=== PATIENT | female | born 1985 | race Caucasian/White ===

== ENCOUNTER → 2016-03-26 | Outpatient (CLI) | payer BC, OTHER ==
[~2016-03-26] MED LIST: INSPMPHMLG; PRENTAB26 PO
[2016-03-26 10:06] LABS: ESTIMATED AVERAGE GLUCOSE 189 mg/dl; HA1C FLAG Normal (Normal)
== END | disposition home or self-care (01) ==
LOC: C.LAB1850 06:59
PROVIDERS: ATTEND Internal Medicine Endocrinology, Diabetes & Metabolism
DX: E10.65 Type 1 diabetes mellitus with hyperglycemia (principal)

== ENCOUNTER → 2016-04-08 | Outpatient (CLI) | payer BC, OTHER ==
[2016-04-11 13:09] LABS: CHLAMYDIA TRACH RNA*** NOT DETECTED (NOT DETECTED); GC (NEIS GONORRHOEAE)RNA** NOT DETECTED (NOT DETECTED)
== END | disposition home or self-care (01) ==
LOC: C.LABSPEC 16:49
PROVIDERS: ATTEND Obstetrics & Gynecology
DX: Z34.01 Encounter for supervision of normal first pregnancy, first trimester (principal)

== ENCOUNTER → 2016-04-08 | Outpatient (CLI) | payer BC, OTHER | END | disposition home or self-care (01) | LOC: C.PAPS 16:49 | PROVIDERS: ATTEND Obstetrics & Gynecology | DX: Z34.01 Encounter for supervision of normal first pregnancy, first trimester (principal) ==

== ENCOUNTER → 2016-04-26 | Outpatient (CLI) | payer BC, OTHER ==
[2016-04-26 13:27] LABS: ESTIMATED AVERAGE GLUCOSE 154 mg/dl; HA1C FLAG Normal (Normal)
== END | disposition home or self-care (01) ==
LOC: C.LAB1850 11:30
PROVIDERS: ATTEND Internal Medicine Endocrinology, Diabetes & Metabolism
DX: E10.65 Type 1 diabetes mellitus with hyperglycemia (principal)

== ENCOUNTER → 2016-06-21 | Outpatient (CLI) | payer BC, OTHER ==
[2016-06-21 12:12] LABS: BASO % 0.5 %; BASO ABS # 0.07 K/uL (0-0.2); COMPLETE YES; EOS % 2.9 %; HEMATOCRIT 37.3 % (37-47); IG% 0.4 %; LYMPH ABS # 1.79 K/uL (1.2-3.4); MEAN CELL VOLUME 86.5 fL (80-100); MEAN CORPUSCULAR HEMOGLOBIN 29.5 pg (25-34); MEAN PLATELET VOLUME 10.4 fL (7.4-10.4); MONO % 5.8 %; NEUT % 77.4 %; PLATELET COUNT 284 K/uL (130-400); RED BLOOD COUNT 4.31 M/uL (4.2-5.4); WHITE BLOOD COUNT 13.77 K/uL (4.8-10.8)
[2016-06-21 12:19] LABS: ESTIMATED AVERAGE GLUCOSE 128 mg/dl; HA1C FLAG Normal (Normal)
== END | disposition home or self-care (01) ==
LOC: C.LAB1850 10:29
PROVIDERS: ATTEND Obstetrics & Gynecology
DX: Z34.02 Encounter for supervision of normal first pregnancy, second trimester (principal); O24.012 Pre-existing type 1 diabetes mellitus, in pregnancy, second trimester

== ENCOUNTER 2016-10-18 21:30 | Outpatient (CLI) | payer BC, OTHER ==
--- NOTE | 2016-10-21 13:25 | EDITING REQUIRED CODING QUERY ---
DIAGNOSIS NEEDED To promote full compliance with coding requirements relating to patient care, physician participation is requested in all cases of chart calculator uncertainty. Please assist us with the question(s) below: Coding Question: The patient received care in labor and delivery on 10/18/16 as noted within the record. Please document the diagnosis that is being addressed by the medication/treatment. Provider Response: DIAGNOSIS:insulin dependent diabetic Thank you for your assistance, Zari Kiran - Captain/Airline Pilot
== END 2016-10-18 21:59 | disposition home or self-care (01) ==
LOC: C.LD 21:30 → C.OPB 21:30
PROVIDERS: ATTEND Obstetrics & Gynecology
DX: O24.113 Pre-existing type 2 diabetes mellitus, in pregnancy, third trimester (principal); Z3A.34 34 weeks gestation of pregnancy

== ENCOUNTER 2016-10-26 19:10 | Outpatient (CLI) | payer BC, OTHER ==
[~2016-10-26] VITALS: Ht 165.1 cm; Wt 60.0 kg
[2016-10-26] MEDS ORDERED: PRENTAB26 PO (20:09)
[2016-10-26 20:10] VITALS: Ht 165.1 cm; Wt 60.0 kg
--- NOTE | 2016-11-01 10:45 | EDITING REQUIRED CODING QUERY ---
DIAGNOSIS NEEDED To promote full compliance with coding requirements relating to patient care, physician participation is requested in all cases of scroll machine operator uncertainty. Please assist us with the question(s) below: Coding Question: The patient received care in labor and delivery on 10/26/16 as noted within the record. Please document the diagnosis that is being addressed by the medication/treatment. Provider Response: DIAGNOSIS: insulin dependent diabetic Thank you for your assistance, Zari Kiran - Driver'S Education Instructor
== END 2016-10-26 19:50 | disposition home or self-care (01) ==
LOC: C.OPB 19:10 → C.LD 19:10 → C.OPB 19:50
PROVIDERS: ATTEND Obstetrics & Gynecology
DX: O24.113 Pre-existing type 2 diabetes mellitus, in pregnancy, third trimester (principal); Z79.4 Long term (current) use of insulin; Z3A.35 35 weeks gestation of pregnancy

== ENCOUNTER 2016-11-01 21:40 | Outpatient (CLI) | payer BC, OTHER ==
[~2016-11-01 21:40] MED LIST changes: -INSPMPHMLG
== END 2016-11-01 22:10 | disposition home or self-care (01) ==
LOC: C.OPB 21:40 → C.LD 21:40 → C.OPB 22:10
PROVIDERS: ATTEND Obstetrics & Gynecology
DX: O24.013 Pre-existing type 1 diabetes mellitus, in pregnancy, third trimester (principal); Z3A.36 36 weeks gestation of pregnancy

== ENCOUNTER → 2016-11-04 | Outpatient (CLI) | payer BC, OTHER ==
[~2016-11-04] MED LIST changes: +INSPMPHMLG
== END | disposition home or self-care (01) ==
LOC: C.LABSPEC 13:50
PROVIDERS: ATTEND Obstetrics & Gynecology
DX: Z34.03 Encounter for supervision of normal first pregnancy, third trimester (principal)

== ENCOUNTER 2016-11-08 21:56 | Outpatient (CLI) | payer BC, OTHER ==
[~2016-11-08 21:56] MED LIST changes: -INSPMPHMLG
--- NOTE | 2016-11-20 11:37 | EDITING REQUIRED CODING QUERY ---
DIAGNOSIS NEEDED To promote full compliance with coding requirements relating to patient care, physician participation is requested in all cases of mechanical insulator uncertainty. Please assist us with the question(s) below: Coding Question: The patient received care in labor and delivery on 11/09/16 as noted within the record. Please document the diagnosis that is being addressed by the medication/treatment. Provider Response: DIAGNOSIS: insulin dependent diabetic WEEKS GESTATION: Thank you for your assistance, Zari Kiran - Audio Visual Arts Director
== END 2016-11-08 22:24 | disposition home or self-care (01) ==
LOC: C.OPB 21:56 → C.LD 21:56 → C.OPB 22:24
PROVIDERS: ATTEND Obstetrics & Gynecology
DX: O24.119 Pre-existing type 2 diabetes mellitus, in pregnancy, unspecified trimester (principal); Z3A.00 Weeks of gestation of pregnancy not specified

== ENCOUNTER 2016-11-16 10:21 | Outpatient (CLI) | payer BC, OTHER | END 2016-11-16 11:20 | disposition home or self-care (01) | LOC: C.LD 10:21 → C.OPB 10:21 | PROVIDERS: ATTEND Obstetrics & Gynecology | DX: O24.019 Pre-existing type 1 diabetes mellitus, in pregnancy, unspecified trimester (principal); E10.9 Type 1 diabetes mellitus without complications; Z3A.00 Weeks of gestation of pregnancy not specified ==

== ENCOUNTER 2016-11-19 15:39 | Inpatient (IN) | payer BC, OTHER ==
[~2016-11-19] VITALS: Ht 165.1 cm; Wt 76.8 kg
[2016-11-19] MEDS ORDERED: LACTATED RINGER'S 1000ML 1,000 ML IV PRN (21:13)
[2016-11-19 21:51] LABS: HEMATOCRIT 38.1 % (37-47); MEAN CELL VOLUME 91.4 fL (80-100); MEAN CORPUSCULAR HEMOGLOBIN 30.7 pg (25-34); MEAN CORPUSCULAR HGB CONC 33.6 g/dl (32-36); MEAN PLATELET VOLUME 11.1 fL (7.4-10.4); PLATELET COUNT 215 K/uL (130-400); RED BLOOD COUNT 4.17 M/uL (4.2-5.4); WHITE BLOOD COUNT 13.17 K/uL (4.8-10.8)
[2016-11-19] MEDS ORDERED: DINOPROSTONE 10 MG INSERT PV ONE (22:15)
[2016-11-19] MEDS ORDERED: PENICILLIN G POTASSIUM IV 3 MU in DEXTROSE 5% 100ML 100 ML IV PRN (22:30)
[2016-11-19] MEDS ORDERED: PENICILLIN G POTASSIUM IV 6 MU in DEXTROSE 5% 250ML 250 ML IV ONE (22:30)
[2016-11-19 22:37] VITALS: Ht 165.1 cm; Wt 76.8 kg
[2016-11-20] MEDS ORDERED: INSPMPHMLG (00:01)
[2016-11-20] MEDS ORDERED: NURSING VERBAL MED ORDER ONE (00:15)
[2016-11-20] MEDS ORDERED: INSULIN HUMAN LISPRO (humaLOG) 100 UNITS/ML VIAL SC PRN (00:45)
[2016-11-20] MEDS ORDERED: GLUCOSE 40% GEL 15 GM TUBE PO PRN (00:45)
[2016-11-20] MEDS ORDERED: GLUCOSE 10 TABS/TUBE PO PRN (00:45)
[2016-11-20] MEDS ORDERED: DEXTROSE 50% 50 ML SYR IV PRN (00:45)
[2016-11-20] MEDS ORDERED: GLUCAGON FOR INJ 1 MG VIAL SQ PRN (00:45)
[2016-11-20] MEDS: LACTATED RINGER'S 1000ML 1,000 ML IV SCH ×2 (00:53→05:30)
[2016-11-20] MEDS: BUTORPHANOL TARTRATE 1 MG/ML VIAL IV PRN ×2 (03:22→05:37)
[2016-11-20] MEDS ORDERED: BUPIVACAINE 0.25% 30 ML VIAL ONE (05:46)
[2016-11-20] MEDS ORDERED: FENTANYL CITRATE INJ 50 MCG/1 ML 2 ML VIAL ONE (05:46)
[2016-11-20] MEDS ORDERED: FENTANYL 2MCG/ML ROPIV 1.25MG/ML 100ML BAG EPI ONE (05:46)
[2016-11-20] MEDS ORDERED: EpHEDrine SULFATE INJ 50 MG/ML AMP ONE (05:46)
[2016-11-20] MEDS ORDERED: OXYTOCIN 30 UNITS/500ML NSS IV ONE (06:53)
[2016-11-20] MEDS ORDERED: OXYCODONE/ACETAMINOPHEN 5-325 TAB PO PRN (08:30)
[2016-11-20] MEDS ORDERED: HYDROCORTISONE ACETATE 25 MG SUPP PR PRN (08:30)
[2016-11-20] MEDS ORDERED: LANOLIN OINT EXT PRN ×2 (08:30)
[2016-11-20] MEDS ORDERED: BENZOCAINE 20% AER SPR 82.5 GM CAN EXT PRN (08:30)
[2016-11-20] MEDS ORDERED: SUPERCREAM 0.870 % 15GM JAR EXT PRN (08:30)
[2016-11-20] MEDS ORDERED: DIPHTHERIA/TETANUS/PERTUSSIS 0.5 ML SYR/VIAL IM. ONE (08:30)
[2016-11-20] MEDS ORDERED: ACETAMINOPHEN 325 MG TAB PO PRN (08:30)
[2016-11-20] MEDS ORDERED: OXYTOCIN 30 UNITS/500ML NSS IV PRN (08:30)
--- NOTE | 2016-11-20 10:09 | DELIVERY SUMMARY ---
DATE OF OPERATION: 11/20/2016 DELIVERY NOTE Helena is a 31-year-old 1, para 1, type 1 diabetic. She has been on insulin pump. She receives her diabetic care from the [facility]. Her glucose control during her has been excellent. She rarely spilled sugar. Blood type is B positive, rubella immune. Vaginal beta strep positive. We have had several ultrasounds done for size including one done approximately 1 week prior to delivery, did not reveal any macrosomia and the abdominal head circumference lined up without any big discrepancy. The patient did request a vaginal delivery so she was brought in for induction at 39+ weeks gestation due to her insulin-dependent diabetic condition. On admission vertex presentation. Cervix was about 2 cm about 60-70% effaced. She was having contractions, although she did not feel them about every 4 minutes. With this contraction pattern we elected to go for Cervidil tape, placed Cervidil tape and they said within an hour or so after the Cervidil tape, she began to become crampy. She was checked and she was about 3-4 cm and then checked about an hour later she was fully dilated. We were unable to give her an epidural due to the fact that she dilated so rapidly and she started pushing and pushed out a live female infant via direct occiput anterior position over a midline episiotomy. was suctioned through the mouth and the nose after delivery of the head. Shoulders were delivered without difficulty at all. Cord was clamped and cut. Cord blood was taken. With IV Pitocin running, the placenta was removed intact. My own estimation 1 and 5 minute Apgars were 5 and 8 respectively. She had bilateral sulcus laceration and a tear through the perineum into a portion of the anterior rectal sphincter capsule, but not into the muscle. Both lateral sulcus lacerations were repaired individually with a running 2-0 Vicryl. Then I did repair of the rectovaginal septum and bolstered the rectal sphincter capsule with a running heavy Vicryl. I then did a deep suture to approximate the bulbocavernosus muscles on each side. I did 3 interrupted sutures to approximate the perineal body and then I did a running subcuticular suture to approximate the perineal skin edges. Following this, vag exam including rectovaginal examination revealed no hematoma formation, no sponges in the vagina, no stitches through the rectal mucosa. The patient tolerated the procedure well. Estimated blood loss about 500 mL. I attest to the content of the Intraoperative Record and any orders documented therein. Any exception s are noted below.
[2016-11-20 10:15] VITALS: BP 117/71; PULSE 72; TEMP 36.9
[2016-11-20] MEDS: IBUPROFEN 600 MG TAB PO PRN ×3 (10:23→18:48)
[2016-11-20 15:45] VITALS: BP 112/59; PULSE 75; TEMP 36.9
[2016-11-20 16:15] VITALS: BP 116/68; PULSE 68; TEMP 36.8
[2016-11-20 19:50] VITALS: BP 117/69; PULSE 93; TEMP 36.7
[2016-11-20] MEDS: DOCUSATE SODIUM 100 MG CAP PO SCH (19:59)
[2016-11-21] MEDS: ACETAMINOPHEN/CODEINE 300/30MG TAB PO PRN ×5 (00:03→22:56)
[2016-11-21 00:05] VITALS: BP 116/71; PULSE 78; TEMP 36.7
[2016-11-21 04:40] VITALS: BP 105/62; PULSE 90; TEMP 36.8
[2016-11-21 06:54] LABS: HEMATOCRIT 34.1 % (37-47)
[2016-11-21 07:40] VITALS: BP 115/71; PULSE 78; TEMP 36.9
--- NOTE | 2016-11-21 08:42 | Progress Note ---
Subjective Nov 21, 2016. Subjective conversation w/ patient Ambulation: ambulating normally Voiding: no voiding problems Passing Gas: Yes Diet Tolerance: Regular Diet Lochia: Small Feeding Type: Breast Feeding Review of Systems Constitutional: + fever Objective Vital Signs Date Time Temp Pulse Resp B/P (MAP) Pulse Ox O2 Delivery O2 Flow Rate FiO2 11/21/16 04:40 36.8 90 17 105/62 (76) Room Air 11/21/16 00:05 36.7 78 20 116/71 (86) Room Air 11/21/16 00:05 Room Air 11/20/16 19:50 36.7 93 20 117/69 (85) Room Air 11/20/16 16:15 36.8 68 16 116/68 (84) Room Air 11/20/16 16:15 Room Air 11/20/16 15:45 36.9 75 16 112/59 (76) Room Air 11/20/16 14:30 Room Air 11/20/16 10:15 36.9 72 20 117/71 (86) Room Air 11/20/16 10:15 Room Air Physical Exam General Appearance: WELL-APPEARING Abdomen: non tender Fundus: Firm, Non-Tender Extremities: no pedal edema, no calf tenderness Laboratory Results Last 24 Hours Test 11/21/16 06:25 Hemoglobin 11.6 g/dL Hematocrit 34.1 % Assessment and Plan Post- Day#: 1
[2016-11-21] MEDS: FERROUS SULFATE 325 MG TAB PO SCH (08:50)
[2016-11-21] MEDS: PRENATAL VITAMIN TAB PO SCH (08:50)
[2016-11-21] MEDS: IBUPROFEN 600 MG TAB PO PRN ×2 (08:50→19:50)
[2016-11-21] MEDS: DOCUSATE SODIUM 100 MG CAP PO SCH ×2 (08:50→19:50)
[2016-11-21 15:50] VITALS: BP 102/56; PULSE 74; TEMP 36.7
[2016-11-21] MEDS ORDERED: BISACODYL 5 MG TABEC PO SCH (20:00)
[2016-11-21 23:00] VITALS: BP 104/64; PULSE 78; TEMP 36.7
[2016-11-22] MEDS: IBUPROFEN 600 MG TAB PO PRN ×2 (03:14→08:11)
[2016-11-22] MEDS: ACETAMINOPHEN/CODEINE 300/30MG TAB PO PRN (06:34)
[2016-11-22] MEDS ORDERED: BISACODYL 10 MG SUPP PR PRN (07:00)
[2016-11-22 08:00] VITALS: BP 99/60; PULSE 78; TEMP 36.6
[2016-11-22] MEDS: PRENATAL VITAMIN TAB PO SCH (08:11)
[2016-11-22] MEDS: FERROUS SULFATE 325 MG TAB PO SCH (08:11)
[2016-11-22] MEDS: DOCUSATE SODIUM 100 MG CAP PO SCH (08:11)
--- NOTE | 2016-11-22 09:07 | Progress Note ---
Subjective Nov 22, 2016. Subjective conversation w/ patient Ambulation: ambulating normally Voiding: no voiding problems Passing Gas: Yes Diet Tolerance: Regular Diet Lochia: Small Feeding Type: Breast Feeding Review of Systems Constitutional: + fever Objective Vital Signs Date Time Temp Pulse Resp B/P (MAP) Pulse Ox O2 Delivery O2 Flow Rate FiO2 11/22/16 08:00 36.6 78 16 99/60 (73) Room Air 11/21/16 23:00 Room Air 11/21/16 23:00 36.7 78 20 104/64 (77) Room Air 11/21/16 15:50 Room Air 11/21/16 15:50 36.7 74 16 102/56 (71) Room Air Physical Exam General Appearance: WELL-APPEARING Abdomen: non tender Fundus: Firm, Non-Tender Extremities: no pedal edema, no calf tenderness Laboratory Results Last 24 Hours Test 11/21/16 12:05 11/21/16 18:46 11/21/16 23:07 11/22/16 08:06 Bedside Glucose 118 mg/dl 107 mg/dl 88 mg/dl 76 mg/dl Assessment and Plan Post- Day#: 2
--- NOTE | 2016-11-22 09:10 | Discharge Instructions ---
Discharge Instructions Date of Service Nov 22, 2016. Admission Reason for Admission: Induction Discharge Discharge Diagnosis / Problem: insulin dependent diabetes Discharge Goals Goal(s): Routine recovery after delivery Activity Recommendations Activity Limitations: as noted below ACTIVITY RECOMMENDATIONS: * Gradual return to full activity over the next 2-3 weeks. * No lifting - nothing heavier than baby over the next 2-3 weeks. * Do not engage in vigorous exercise, sexual activity or sports until cleared by your physician. * Do not drive or operate any motorized equipment until cleared by your physician. * You may shower/bathe daily. DIET: Resume Previous Diet If Breast-feeding: * Increase caloric intake by 500 calories, eat 3 well balanced meals, 2 high protein snacks a day and drink 6-8 8oz. glasses of fluid per day. BREAST CARE: If you are not breast feeding: * Wear a supportive bra 24 hours a day for one to two weeks. * Avoid stimulating your breasts and nipples as much as possible during the first few weeks after delivery. * When taking a shower, have the warm water hit your back, not breasts. * When your breasts feel full, apply ice packs. Usually three to four times a day helps ease the discomfort. * Take a mild pain medication (Tylenol / Motrin) when you are uncomfortable. If breast feeding: * Use breast milk to lubricate nipples. Lansinoh cream may be used for sore nipples. You do not need to remove cream prior to breast feeding. If using a different brand of cream, check the label for directions regarding removal of cream prior to nursing. * Wear a supportive bra. * If having problems with breasts or breast feeding, call a collection systems consultant or your health care provider. OVER THE COUNTER MEDICATION: * For discomfort or pain, you may use Acetaminophen (Tylenol), Ibuprofen (Advil ), or Naproxen (Aleve) following the package directions. * For constipation you may use Colace following the package directions. SPECIAL CARE INSTRUCTIONS: * Vaginal rest (no tampons, douching, intercourse) until after doctor 's visit. * control as discussed with doctor. * Verbalizes understanding of car seat law as reviewed with patient nursing. * Car Seat hand-out given and reviewed with patient by nursing. * Shaken baby information reviewed with patient by nursing. Call you doctor if: * Temperature greater than or equal to 100.4 degrees F or 38.0 degrees C. Take your temperature twice daily for a week. * Bleeding becomes heavier than the heaviest part of your period - saturating a sanitary pad within an hour. * Passing large clots. * Bleeding has a foul smelling odor. * Signs and symptoms of phlebitis: leg pain, warm, red or swollen area on leg. * "Baby Blues" lasting longer than two weeks. ++ If you have had a and incision has increased pain, redness, swelling, presence of any drainage, or if the incision starts to open up. If you have any questions or concerns, call your health care practitioner at [phone]. FOLLOW-UP VISIT: Please call the office at to schedule a 6 week examination. . Instructions / Follow-Up Instructions / Follow-Up ACTIVITY RECOMMENDATIONS: * Gradual return to full activity over the next 2-3 weeks. * No lifting - nothing heavier than baby over the next 2-3 weeks. * Do not engage in vigorous exercise, sexual activity or sports until cleared by your physician. * Do not drive or operate any motorized equipment until cleared by your physician. * You may shower/bathe daily. DIET: Resume Previous Diet If Breast-feeding: * Increase caloric intake by 500 calories, eat 3 well balanced meals, 2 high protein snacks a day and drink 6-8 8oz. glasses of fluid per day. BREAST CARE: If you are not breast feeding: * Wear a supportive bra 24 hours a day for one to two weeks. * Avoid stimulating your breasts and nipples as much as possible during the first few weeks after delivery. * When taking a shower, have the warm water hit your back, not breasts. * When your breasts feel full, apply ice packs. Usually three to four times a day helps ease the discomfort. * Take a mild pain medication (Tylenol / Motrin) when you are uncomfortable. If breast feeding: * Use breast milk to lubricate nipples. Lansinoh cream may be used for sore nipples. You do not need to remove cream prior to breast feeding. If using a different brand of cream, check the label for directions regarding removal of cream prior to nursing. * Wear a supportive bra. * If having problems with breasts or breast feeding, call a collection systems consultant or your health care provider. OVER THE COUNTER MEDICATION: * For discomfort or pain, you may use Acetaminophen (Tylenol), Ibuprofen (Advil ), or Naproxen (Aleve) following the package directions. * For constipation you may use Colace following the package directions. SPECIAL CARE INSTRUCTIONS: * Vaginal rest (no tampons, douching, intercourse) until after doctor 's visit. * control as discussed with doctor. * Verbalizes understanding of car seat law as reviewed with patient nursing. * Car Seat hand-out given and reviewed with patient by nursing. * Shaken baby information reviewed with patient by nursing. Call you doctor if: * Temperature greater than or equal to 100.4 degrees F or 38.0 degrees C. Take your temperature twice daily for a week. * Bleeding becomes heavier than the heaviest part of your period - saturating a sanitary pad within an hour. * Passing large clots. * Bleeding has a foul smelling odor. * Signs and symptoms of phlebitis: leg pain, warm, red or swollen area on leg. * "Baby Blues" lasting longer than two weeks. ++ If you have had a and incision has increased pain, redness, swelling, presence of any drainage, or if the incision starts to open up. If you have any questions or concerns, call your health care practitioner at [phone]. FOLLOW-UP VISIT: Please call the office at to schedule a 6 week examination. Current Hospital Diet Patient's current hospital diet: Regular OB Diet Discharge Diet Recommended Diet: Regular Diet Pending Studies Studies pending at discharge: no Medical Emergencies . Who to Call and When: Medical Emergencies: If at any time you feel your situation is an emergency, please call 911 immediately. . Non-Emergent Contact Non-Emergency issues call your: Work Checker Call Non-Emergent contact if: temperature is above 100.5 . . "Provider Documentation" section prepared by Allen Yost. . VTE Core Measure Inpt VTE Proph given/why not?: Treatment not indicated
[2016-11-22 14:10] VITALS: BP_DIAS 60; PULSE 78; TEMP 36.6
== END 2016-11-22 14:10 | disposition home or self-care (01) | DRG 774 ==
LOC: C.LD 20:55 → C.OBG 11-20 22:14
PROVIDERS: ADMIT Obstetrics & Gynecology; ATTEND Obstetrics & Gynecology
PROC: 3E033VJ Introduction of Other Hormone into Peripheral Vein, Percutaneous Approach (ICD-10-PCS; principal; 2016-11-20)
PROC: 0KQM0ZZ Repair Perineum Muscle, Open Approach (ICD-10-PCS; principal; 2016-11-20)
PROC: 10E0XZZ Delivery of Products of Conception, External Approach (ICD-10-PCS; principal; 2016-11-20)
PROC: 0W8NXZZ Division of Female Perineum, External Approach (ICD-10-PCS; principal; 2016-11-20)
DX: O24.02 Pre-existing type 1 diabetes mellitus, in childbirth (principal); Z22.330 Carrier of Group B streptococcus; O70.1 Second degree perineal laceration during delivery; Z96.41 Presence of insulin pump (external) (internal); Z37.0 Single live birth; Z3A.39 39 weeks gestation of pregnancy

== ENCOUNTER → 2016-12-30 | Outpatient (CLI) | payer BC ==
[~2016-12-30] MED LIST changes: +INSPMPHMLG
== END | disposition home or self-care (01) ==
LOC: C.PAPS 14:47
PROVIDERS: ATTEND Obstetrics & Gynecology
DX: Z39.2 Encounter for routine postpartum follow-up (principal)

== ENCOUNTER 2019-06-22 09:47 | Inpatient (IN) ==
[2019-06-22] MEDS ORDERED: OXYTOCIN 30 UNITS/500 ML BAG IV PRN (20:15)
[2019-06-22] MEDS ORDERED: LACTATED RINGER'S 1,000 ML IV PRN (20:15)
[2019-06-22] MEDS ORDERED: PENICILLIN G POTASSIUM 6 MU in DEXTROSE 5% 250 ML IV STA (20:20)
[2019-06-22 20:39] LABS: Hematocrit (blood only) 37.9 % (37-47); Hemoglobin 12.9 g/dL (12.0-16.0); Mean Corpuscular Hemoglobin 30.7 pg (25-34); Mean Corpuscular Volume 90.2 fL (80-100); Mean Platelet Volume 11.4 fL (7.4-10.4); Platelet Count 205 K/uL (130-400); RDW Coefficient of Variation 13.8 % (11.5-14.5); RDW Standard Deviation 45.5 fL (36.4-46.3); White Blood Count 11.72 K/uL (4.8-10.8)
[2019-06-22] MEDS ORDERED: DINOPROSTONE 10 MG INSERT PV ONE (20:45)
[2019-06-22] MEDS ORDERED: BUTORPHANOL TARTRATE 1 MG/ML VIAL IV PRN (20:51)
[2019-06-23] MEDS: PENICILLIN G POTASSIUM 3 MU in DEXTROSE 5% 100 ML IV PRN ×2 (00:43→04:59)
[2019-06-23] MEDS ORDERED: BENZOCAINE 20% AER SPR 82.5 GM CAN EXT PRN (09:40)
[2019-06-23] MEDS ORDERED: OXYTOCIN 30 UNITS/500 ML BAG IV PRN (09:40)
[2019-06-23] MEDS ORDERED: SUPERCREAM 0.870% 15 GM JAR EXT PRN (09:40)
[2019-06-23] MEDS ORDERED: bisacodyL 10 MG SUPP PR PRN (09:40)
[2019-06-23] MEDS ORDERED: OXYCODONE/ACETAMINOPHEN 5mg/325mg TAB PO PRN (09:40)
[2019-06-23] MEDS ORDERED: ACETAMINOPHEN W/CODEINE #3 1 TAB PO PRN (09:40)
[2019-06-23] MEDS ORDERED: DIPHTHERIA/TETANUS/PERTUSSIS 0.5 ML SYR/VIAL IM ONE (09:40)
[2019-06-23] MEDS ORDERED: MEASLES, MUMPS & RUBELLA VIRUS VIAL SQ ONE (09:40)
[2019-06-23] MEDS ORDERED: ACETAMINOPHEN 325 MG TAB PO PRN (09:40)
[2019-06-23] MEDS ORDERED: HYDROCORTISONE ACETATE 25 MG SUPP PR PRN (09:40)
[2019-06-23 09:48] LABS: Base Excess Cord Arterial Bld -3.1 mEq/L (-9-1.8); CO2 Cord Arterial Blood 59 mmHg (39.1-73.5); HCO3 Cord Arterial Blood 25 mmol/L (19.7-28.5); Oxygen Sat Cord Arterial Blood < 60.0 % (<60); PO2 Cord Arterial Blood 18 mmHg (4.1-31.7); pH Cord Arterial Blood 7.26 (7.1-7.38)
[2019-06-23 09:50] LABS: Cord Venous Blood HCO3 20 mmol/L (18.4-26.8); Cord Venous Blood PCO2 35 mmHg (30.4-57.2); Cord Venous Blood PO2 35 mmHg (14.1-43.3); Cord Venous Blood pH 7.38 (7.20-7.44); O2 Saturation Cord Venous Bld 76.7 % (<68)
[2019-06-23] MEDS: IBUPROFEN 600 MG TAB PO PRN ×2 (09:57→20:28)
--- NOTE | 2019-06-23 10:06 | Delivery Summary ---
DATE OF OPERATION: 06/23/2019 2, para 2, blood type B positive, group B strep positive, insulin-dependent diabetic, uses a pump to control her diabetes. Diabetes has been well controlled her whole . She was brought in for induction at 38 weeks and 6 days. On admission, she was given IV penicillin, started right away. Then, we used a Cervidil tape. About 12 hours later, she was having strong contractions. The tape was removed and she was fully dilated, pushed out a live male infant via direct occiput anterior position. There was shoulder dystocia, head retracted slightly. There was a tight nuchal cord which I was able to reduce over the head. Then had to dislodge the anterior shoulder. I actually reached for the posterior shoulder then got my finger underneath the armpit, pulled it down then went back to the anterior shoulder. Suprapubic pressure was used to dislodge the shoulder and then followed by fundal pressure and the shoulders came out. was born limp, clamped the cord and immediately transferred over to the resuscitation table. Apgars will be deferred to the nurses. Following this, cord blood was taken. We took a strip of cord for gases. Then with IV Pitocin running, the placenta was removed intact. Inspection of the perineum revealed a second-degree laceration repaired anatomically. The vaginal mucosa was approximated out and to beyond the hymenal ring. A deep suture was used to approximate the rectovaginal septum, 2 sutures used to approximate the bulbocavernosus muscle. Suture was used to bolster the rectal sphincter capsule. Another suture was used to approximate the perineal body, then a running subcuticular suture of Vicryl was used to approximate the perineal skin edges. Following this, sponges were removed from the vagina. Vag exam revealed no hematoma formation, rectovaginal examination revealed no stitches through the rectum. Estimated blood loss 200 mL. The patient tolerated the procedure well. I attest to the content of the Intraoperative Record and any orders documented therein. Any exceptions are noted below. LIBBYD
[2019-06-23] MEDS: VALACYCLOVIR HCL 500 MG TABLET PO SCH ×2 (10:41→20:29)
[2019-06-23] MEDS: DOCUSATE SODIUM 100 MG CAP PO SCH (20:28)
[2019-06-24] MEDS: IBUPROFEN 600 MG TAB PO PRN ×2 (05:18→16:03)
[2019-06-24 06:57] LABS: Hematocrit (blood only) 36.4 % (37-47); Mean Platelet Volume 11.5 fL (7.4-10.4); Platelet Count 196 K/uL (130-400); RDW Coefficient of Variation 14.1 % (11.5-14.5); RDW Standard Deviation 47.1 fL (36.4-46.3); White Blood Count 15.39 K/uL (4.8-10.8)
[2019-06-24] MEDS: DOCUSATE SODIUM 100 MG CAP PO SCH ×2 (08:33→20:41)
[2019-06-24] MEDS: PRENATAL VITAMIN 1 TAB PO SCH (08:35)
--- NOTE | 2019-06-24 09:21 | Obstetrical Progress Note ---
Date of Service June 24, 2019 Assessment & Plan Admission and Anticipated Discharge Date Admission Date: June 22, 2019 Physical Exam Physical Exam: abdomen soft and non tender no calf tenderness ambulating well vaginal bleeding scant hgb 12 Results & Data ([facility]) Vital Signs (Past 12 Hours) Vital Signs Temp Pulse Pulse Resp BP Pulse Ox 06/24/19 08:00 36.5 C 74 18 124/62 97 06/24/19 04:00 36.7 C 66 18 126/70 06/24/19 00:00 37.0 C 67 18 120/70
[2019-06-24] MEDS ORDERED: bisacodyL 5 MG TABEC PO SCH (20:00)
[2019-06-25 06:21] LABS: Hematocrit (blood only) 37.8 % (37-47); Hemoglobin 12.5 g/dL (12.0-16.0)
[2019-06-25] MEDS: PRENATAL VITAMIN 1 TAB PO SCH (08:21)
[2019-06-25] MEDS: DOCUSATE SODIUM 100 MG CAP PO SCH (08:21)
--- NOTE | 2019-06-25 08:57 | Obstetrical Progress Note ---
Date of Service June 25, 2019 Assessment & Plan Admission and Anticipated Discharge Date Admission Date: June 22, 2019 Physical Exam Physical Exam: abdomen soft and non tender no calf tenderness ambulating well vaginal bleeding scant hgb 12.5 Results & Data ([facility]) Vital Signs (Past 12 Hours) Vital Signs Temp Pulse Resp BP 06/24/19 23:50 36.5 C 67 18 108/58 L
== END 2019-06-25 11:15 | disposition home or self-care (01) | DRG 807 ==
LOC: 4S1 19:06 → 4S2 06-23 12:40